=== PATIENT | male | born 1955 | race Caucasian/White ===

== ENCOUNTER 2016-07-28 06:33 | Inpatient (IN) | payer BC ==
--- NOTE | 2016-07-20 21:32 | HP ---
HISTORY AND PHYSICAL: DATE OF ADMISSION/SURGERY: 07/28/16 DATE OF OFFICE VISIT: 07/20/16 SURGEON: Sydnee Naranjo MD PROCEDURE: Right total knee arthroplasty. CHIEF COMPLAINT: Right knee pain. HISTORY OF PRESENT ILLNESS: Mr. Ramirez is a 60-year-old gentleman with complaints of right knee pain secondary to advanced osteoarthritis. He has failed conservative management and elected to proceed with a right total knee arthroplasty which is scheduled for 07/28/[address] Naranjo. PAST MEDICAL HISTORY: Hypertension, high cholesterol, myocardial infarction in 1998. PAST SURGICAL HISTORY: Angioplasty and right knee arthroscopy. CURRENT MEDICATIONS: 1. Naproxen. 2. Amlodipine. 3. Atorvastatin calcium. 4. Carvedilol. 5. Aspirin. 6. Losartan potassium/hydrochlorothiazide. 7. Spironolactone. 8. Ibuprofen. ALLERGIES: No known drug allergies. FAMILY HISTORY: Hypertension and lung cancer. SOCIAL HISTORY: This is a 60-year-old gentleman, he lives with his partner. He does not smoke or use drugs. He uses occasional alcohol. REVIEW OF SYSTEMS: A complete 14-point review of systems was reviewed with the patient, was all negative and noncontributory PHYSICAL EXAMINATION GENERAL: He is a well-developed, well-nourished, he is in no acute distress. VITAL SIGNS: He stands 6 feet tall, weighs 240 pounds. His blood pressure 138/ 86, his heart rate 76. HEENT: Normocephalic, atraumatic. NECK: Supple. No palpable lymph nodes. PULMONARY: Lungs are clear to auscultation bilaterally. No wheezes, rhonchi, or rales. CARDIO: Regular rate and rhythm. Strong S1 and S2. No murmurs, gallops, or rubs. ABDOMEN: Soft, nontender, nondistended. MUSCULOSKELETAL: Right lower extremity, the skin is intact. There is a moderate joint effusion and tenderness over the medial and lateral joint line. No varus or valgus instability. 20 to 90 degrees of flexion. He has 4+/5 dorsiflexion and plantar flexion. Intact sensation to pinprick and light touch. 2+ dorsalis pedis pulses. He walks with a slightly antalgic-type gait favoring his right leg. NEUROLOGICAL: He is alert and oriented x3. Cranial nerves II through XII are intact. ASSESSMENT AND PLAN: Mr. Ramirez is a 60-year-old gentleman with complaints of right knee pain. He has failed conservative management and elected to proceed with a right total knee arthroplasty, which is scheduled for 07/28/[address] Naranjo discussed the risks and benefits of the surgery with him today and all his questions were answered. Coumadin, Percocet, and Colace were sent to his pharmacy for postoperative pain control and DVT prophylaxis. He will see Dr. Naranjo back 10 to 14 days after the surgery. DOUG BOSS [id number]/[facility] #: [id number] KYM
[~2016-07-28 06:33] MED LIST: Buffered Lidocaine 1% SYRIN* 3 ML/SYR SYRINGE INTRADERM ONE; Famotidine IV* 10 MG/ML 2 ML (20 mg) IV ONE; Famotidine IV* 10 MG/ML 2 ML (20 mg) ONE; Gabapentin CAP(*) 300 MG ONE; Gabapentin CAP(*) 300 MG PO ONE; Morphine INJ* 2 MG/ML 1 ML SYRINGE IV PRN; PROCHLORPERAZINE INJ 5 MG/ML 2 ML VIAL IV PRN; Scopolamine 1.5 mg* PATCH ONE; Scopolamine 1.5 mg* PATCH TRANSDERM ONE; ceFAZolin 2 GM PREMIX(*) 2 GM/50 ML BAG IVPB ONE; fentaNYL* 50 MCG/ML 2 ML VIAL (100 MCG VIAL) IV PRN; oxyCODONE/Acetamin 5/325 MG* TAB PO PRN
[2016-07-28] MEDS ORDERED: Midazolam* 1 MG/ML 10 ML VIAL (10 MG) ONE (07:21)
[2016-07-28] MEDS ORDERED: fentaNYL* 50 MCG/ML 2 ML VIAL (100 MCG VIAL) ONE (07:21)
[2016-07-28] MEDS ORDERED: KETAMINE HCL* 50 MG/ML 10 ML VIAL ONE (07:21)
[2016-07-28] MEDS ORDERED: Bupivacaine 0.5% SDV PF* 30 ML VIAL ONE (07:28)
[2016-07-28] MEDS ORDERED: Hetastarch in NS* 500 ML IV ONE (07:29)
[2016-07-28] MEDS ORDERED: Propofol* 500 MG/50 ML BTL ONE (08:38)
[2016-07-28] MEDS ORDERED: Lidocaine 2% PF* 5 ML VIAL ONE (08:38)
[2016-07-28] MEDS ORDERED: Ondansetron INJ* 2 MG/ML VIAL ONE (08:38)
[2016-07-28] MEDS ORDERED: Dexamethasone IV* 4 MG/ML 1 ML (4 MG) ONE (08:38)
[2016-07-28] MEDS ORDERED: Phenylephrine INJ* 10 MG/ML 1 ML VIAL (10 MG) ONE (08:38)
[2016-07-28] MEDS ORDERED: Nalbuphine* 20 MG/ML 1 ML VIAL IV PRN (08:54)
[2016-07-28] MEDS ORDERED: Ondansetron INJ* 2 MG/ML VIAL IV PRN (08:54)
[2016-07-28] MEDS ORDERED: PROCHLORPERAZINE INJ 5 MG/ML 2 ML VIAL IV PRN (08:54)
[2016-07-28] MEDS ORDERED: Lactated Ringers 500 ml BAG* 500 ML IV PRN (08:54)
[2016-07-28] MEDS ORDERED: EPHEDrine (Pressors)* 50 MG/ML VIAL IV PUSH PRN (08:54)
[2016-07-28] MEDS ORDERED: Hetastarch in NS* 500 ML IV PRN (08:54)
[2016-07-28] MEDS ORDERED: Ropivacaine 0.2% EPIDURAL* 200 MG/100 ML BAG EPIDURAL SCH (09:00)
[2016-07-28] MEDS ORDERED: Ropivacaine 0.2% EPIDURAL* 200 MG/100 ML BAG EPIDURAL ONE (09:06)
[2016-07-28] MEDS ORDERED: Metoprolol Tartrate IV* 1 MG/ML 5 ML VIAL ONE (10:03)
[2016-07-28] MEDS ORDERED: Bupivacaine 0.25% SDV* 30 ML ONE (10:39)
[2016-07-28] MEDS ORDERED: Propofol* 10 MG/ML 20 ML BTL IV PUSH ONE (10:39)
[2016-07-28] MEDS ORDERED: Morphine INJ* 2 MG/ML 1 ML SYRINGE IV PRN (11:04)
[2016-07-28] MEDS ORDERED: Magnesium Hydroxide LIQ* 30 ML UDC PO PRN (11:04)
[2016-07-28] MEDS ORDERED: diPHENhydraMINE IV* 50 MG/ML 1 ml VIAL (BENADRYL) IV PRN (11:04)
[2016-07-28] MEDS ORDERED: Polyethylene Glycol 3350* 17 GM PACKET PO PRN (11:04)
[2016-07-28] MEDS ORDERED: Bisacodyl SUPP* 10 MG SUPP PR PRN (11:04)
[2016-07-28] MEDS ORDERED: oxyCODONE/Acetamin 5/325 MG* TAB PO PRN ×2 (11:04→13:36)
[2016-07-28] MEDS ORDERED: LACTULOSE* 30 ML UDC PO PRN (11:04)
--- NOTE | 2016-07-28 11:51 | RAD ---
INDICATION: Right total knee arthroplasty COMPARISON: May 05, 2016 TECHNIQUE: Portable AP and crosstable lateral imaging was performed. FINDINGS: There is right knee arthroplasty. Both femoral and tibial components appear well seated. There is a cooling jacket surgical drain. IMPRESSION: POSTOPERATIVE RIGHT KNEE ARTHROPLASTY.
[2016-07-28] MEDS ORDERED: Morphine PF AMP (0.5MG/ML)* 5 MG/10 ML AMP ONE (11:56)
[2016-07-28] MEDS ORDERED: Naloxone* 0.4 MG/ML 1 ML VIAL IV PRN (13:36)
[2016-07-28] MEDS: ceFAZolin 1 GM in Dextrose (*) 1 GM/50 ML BAG IVPB SCH (16:37)
[2016-07-28] MEDS ORDERED: Warfarin TAB(*) 6 MG PO ONE (17:00)
--- NOTE | 2016-07-28 22:31 | CONS ---
CONSULTATION REPORT: DATE OF ADMISSION: 07/28/16 DATE OF CONSULT: 07/28/16 PRIMARY CARE PROVIDER: DOUG Lucero, [facility]. REQUESTING PHYSICIAN FOR CONSULT: Dr. Naranjo. ATTENDING PHYSICIAN WHILE IN THE HOSPITAL: Dr. Saenz (report being dictated by Hubert Cole NP) REASON FOR MEDICAL CONSULTATION: Evaluation and management of medical problems. HISTORY OF PRESENT ILLNESS: I refer you to Dr. Naranjo's H and P for further details. In short, Mr. Ramirez is a 60-year-old male patient with history of hypertension, hyperlipidemia, coronary artery disease, CKD, and history of DE. The patient presented to Dr. Naranjo's service in the outpatient setting with complaints of right knee pain that had been affecting his activity of daily living. He had failed conservative management and elected for a total knee replacement, which he underwent today. The patient states that he was evaluated in the postoperative setting. He says he is not having any chest pain or any shortness of breath. He says he does not feel lightheaded or dizzy. He says he feel a little tired. He is hungry. He denies having any nausea or vomiting. He says his legs feel like they are red, but he states that he is able to move them and he does have sensation, but they feel heavy bilaterally. He does have an epidural in place and also did have Duramorph and he denies having any again lightheadedness or dizziness. He carries a history of hypertension. He is on several different blood pressure medications; hyperlipidemia, CAD, and CKD and the hospitalist service was asked to evaluate in consult. PAST MEDICAL HISTORY: Significant for: 1. Hypertension. 2. Hyperlipidemia. 3. CAD. 4. DE. 5. CKD. PAST SURGICAL HISTORY: 1. The patient has had a right total knee arthroplasty. 2. Cardiac catheterization. 3. Knee arthroscopy, now again right total knee done today. HOME MEDICATIONS: According to the preop list include: 1. Losartan/hydrochlorothiazide 1 tablet daily. 2. Lipitor 1 tablet daily. 3. Aspirin 1 tablet daily. 4. Norvasc 1 tablet daily. 5. Spironolactone 50 mg p.o. daily. 6. Carvedilol 1 tablet p.o. b.i.d. He did clarify that he does not take this once a day. 7. Naproxen 500 mg p.o. b.i.d. ALLERGIES TO MEDICATIONS: Include no known drug allergies. FAMILY HISTORY: His mother had a CVA. Father had lung cancer. SOCIAL HISTORY: He does not smoke. He does not drink. Surrogate decision maker is his friend, Emmy. He has children. He is . REVIEW OF SYSTEMS: There is no documented fever. He denied having any significant weight change. There was no double vision. There is no ear discharge. There is no rhinorrhea. No sore throat. No thyroid enlargement. Denied having any chest pain. There is no orthopnea. No nocturnal dyspnea. There is no abdominal pain. No nausea. No vomiting. No dysuria. No Frequency. No loss of consciousness. No pruritus and no skin ulcerations. Review of 14 systems completed, all others negative. PHYSICAL EXAM: Vital Signs: Blood pressure 126/85 with a pulse of 60, respirations 18, O2 saturation 98%, temperature 96.8. General: At this time, Mr. Ramirez is a 60-year-old male patient. He is well-nourished and well- developed. He is sitting in the hospital bed. He does not appear to be in any acute distress. HEENT: Head atraumatic and normocephalic. Eyes: EOMs intact. Sclerae anicteric. Neck: Supple. Throat: Oral mucosa appears to be moist. No oropharyngeal erythema. Heart: Sounds S1 and S2. Regular rate and rhythm. No murmurs, rubs, or gallops. Lungs: Clear to auscultation. No wheezes, rales, or rhonchi. Abdomen: Soft, flat, and nontender. Bowel sounds present. Extremities: Pulses 2+ throughout. Distal CSM checks were intact to the right lower extremity. He is moving the upper extremities with 5/5 strength. He has limited range of motion of the right lower extremity because this is the operative leg. Neurologically, he is drowsy, but he awakens to his name. He is alert. He is oriented x3. Speech is clear. Tongue midline. He had no gross focal deficits. His skin is intact. DIAGNOSTIC STUDIES/LAB STUDIES: Preop labs revealed WBC of 8.4, RBC of 5.26, hemoglobin 16.4, hematocrit 48, platelet count 140, INR 0.98, PTT of 33.1. Sodium 134, potassium 4.6, chloride 104, bicarb 22, BUN 46, creatinine 1.98. I do not have a baseline. A1c 5.9, AST 30, ALT 58. Urine obtained preop negative. He had an EKG preoperatively, which shows a normal sinus rhythm. He had inverted T-wave in V6, but no signs of ST elevation. No previous for comparison. There is a preop chest x-ray, which revealed no active cardiopulmonary disease. Old medical records were reviewed. ASSESSMENT AND PLAN: Mr. Ramirez is a 60-year-old male patient coming in to the surgical service today for any elective right total knee that we were asked to evaluate in consult. The patient was admitted under our orthopedic services. We were asked to evaluate and consult. Recommendations to this point are: 1. Right total knee replacement. At this point, I will defer the management of this to Surgery and their team. 2. Hypertension. I am going to hold his medications. His blood pressure is in the 120s. With the epidural, he is probably going to run on the low side. The plan would be to hold everything, but the beta-ludmila. Continue that with hold parameters and restart slowly. 3. Hyperlipidemia, continue statin therapy. 4. Coronary artery disease. He is on a statin and beta-ludmila. Continue those. I would restart his aspirin when it is safe per Orthopedics and Anesthesia as he did have an epidural. 5. Chronic kidney disease. I am going to try to get labs from his primary to confirm this is his baseline and I will continue to follow. 6. Code status, full code. 7. Fluids, electrolytes, and nutrition. He can have a heart healthy diet. TIME SPENT: Time spent on the consult was 60 minutes, greater than half the time was spent [id number] with the patient obtaining history and physical, other half the time spent going over the plan of care with the patient and implementing plan of care. I did discuss the plan of care with my attending, Dr. Saenz; she is in agreement. HUBERT COLE NP CC: DOUG Lucero; Dr. Naranjo* [id number]/[facility] #: [id number] [facility]
[2016-07-28] MEDS: Gabapentin CAP(*) 300 MG PO SCH (22:36)
[2016-07-28] MEDS: Docusate CAP* 100 MG PO SCH (22:36)
[2016-07-28] MEDS: Carvedilol TAB* 25 MG PO SCH (22:36)
[2016-07-29] MEDS: ceFAZolin 1 GM in Dextrose (*) 1 GM/50 ML BAG IVPB SCH ×2 (00:21→08:29)
[2016-07-29] MEDS ORDERED: Acetaminophen TAB* 325 MG PO PRN (04:45)
[2016-07-29] MEDS ORDERED: Ondansetron TAB* 4 MG PO PRN (06:00)
[2016-07-29 06:31] LABS: Hematocrit 39 % (42-52); Mean Corpuscular HGB Conc 33 g/dl (31-36); Mean Corpuscular Hemoglobin 30 pg (27-31); Mean Corpuscular Volume 91 fL (80-94); Mean Platelet Volume 10 um3 (7.4-10.4); Red Blood Count 4.28 10^6/ul (4.0-5.4); Red Cell Distribution Width 15 % (10.5-15); White Blood Count 14.4 10^3/ul (3.5-10.8)
[2016-07-29 06:56] LABS: BUN/Creatinine Ratio 16.7 (8-20); Calcium 8.6 mg/dL (8.6-10.3); EGFR African American 61.4 (>60); EGFR Non-African American 47.7 (>60); Potassium 4.2 mmol/L (3.5-5.0)
--- NOTE | 2016-07-29 07:39 | PN ---
Progress Note - Progress Note SOAP: Subjective: Pt. reports pain is controlled. Objective: RLE - drain removed, tip intact, 400 cc ss drainage. distally nvi with +df/pf, full sens lt, 2+ dp pulse. Vital Signs: Temp Pulse Resp BP Pulse Ox 97.3 F 79 16 122/82 97 07/29/16 03:42 07/29/16 03:42 07/29/16 05:09 07/29/16 03:42 07/29/16 03:42 Laboratory Results - last 24 hr 07/29/16 07/29/16 07/29/16 06:07 06:07 06:07 WBC 14.4 H RBC 4.28 Hgb 13.0 L Hct 39 L MCV 91 MCH 30 MCHC 33 RDW 15 Plt Count 105 L MPV 10 Neut % (Auto) 88.2 H Lymph % (Auto) 5.3 L Randolph % (Auto) 6.3 Eos % (Auto) 0 Baso % (Auto) 0.2 Absolute Neuts (auto) 12.7 H Absolute Lymphs (auto) 0.8 L Absolute Monos (auto) 0.9 H Absolute Eos (auto) 0 Absolute Basos (auto) 0 Absolute Nucleated RBC 0 Nucleated RBC % 0 INR (Anticoag Therapy) 1.04 Sodium 136 Potassium 4.2 Chloride 104 Carbon Dioxide 24 Anion Gap 8 BUN 25 H Creatinine 1.50 H Est GFR ( Amer) 61.4 Est GFR (Non-Af Amer) 47.7 BUN/Creatinine Ratio 16.7 Glucose 139 H Calcium 8.6 Assessment: 60 yo M pod 1 s/p RTKA Plan: hct stable coumadin 10 mg tonight with lovenox bridge pt/ot wbat plan d/c to home 07/30
[2016-07-29] MEDS: Docusate CAP* 100 MG PO SCH ×2 (08:31→20:09)
[2016-07-29] MEDS: Carvedilol TAB* 25 MG PO SCH ×2 (08:31→20:09)
[2016-07-29] MEDS: Gabapentin CAP(*) 300 MG PO SCH ×2 (08:31→20:09)
[2016-07-29] MEDS: Atorvastatin* 10 MG TAB PO SCH (08:31)
--- NOTE | 2016-07-29 08:53 | PN ---
Subjective Date of Service: 07/29/16 Interval History: .Pt seen and evaluated at 1700. Pt reports he "is sore but feels good". Has not been able to void since mandujano removal. reports he feels like he has to go and wants to give it some time and drink more fluid. Pt denies Fever or chills. No CP or SOB. Objective Active Medications: Acetaminophen (Tylenol Tab*) 650 mg PO Q4H PRN PRN Reason: PAIN OR TEMPERATURE Atorvastatin Calcium (Lipitor*) 10 mg PO QAM [facility] Last Admin: 07/29/16 08:31 Dose: 10 mg Bisacodyl (Dulcolax Supp*) 10 mg ID DAILY PRN PRN Reason: constipation Carvedilol (Coreg Tab*) 25 mg PO BID [facility] Last Admin: 07/29/16 08:31 Dose: 25 mg Diphenhydramine HCl (Benadryl Iv*) 12.5 mg IV Q6H PRN PRN Reason: PRURITIS Docusate Sodium (Colace Cap*) 100 mg PO BID [facility] Last Admin: 07/29/16 08:31 Dose: 100 mg Enoxaparin Sodium (Lovenox(*)) 30 mg SUBCUT Q24H [facility] Gabapentin (Neurontin Cap(*)) 300 mg PO BID [facility] Last Admin: 07/29/16 08:31 Dose: 300 mg Hetastarch/Sodium Chloride (Hespan*) 500 mls @ 667 mls/hr IV ONCE PRN PRN Reason: HYPOTENSION Lactated Ringer's (Lactated Ringers 1000 Ml Bag*) 1,000 mls @ 100 mls/hr IV PER RATE [facility] Last Admin: 07/29/16 02:49 Dose: 100 mls/hr Lactulose (Lactulose*) 30 ml PO Q6H PRN PRN Reason: constipation Magnesium Hydroxide (Milk Of Magnesia Liq*) 30 ml PO Q6H PRN PRN Reason: constipation Morphine Sulfate (Morphine Inj (Syringe)*) 2 mg IV Q2H PRN PRN Reason: PAIN Ondansetron HCl (Zofran Tab*) 4 mg PO Q6H PRN PRN Reason: NAUSEA Oxycodone HCl (Roxycodone Tab*) 10 mg PO Q4H PRN PRN Reason: SEVERE PAIN Oxycodone/Acetaminophen (Percocet 5/325 Tab*) 1 tab PO Q3H PRN PRN Reason: PAIN - MODERATE Oxycodone/Acetaminophen (Percocet 5/325 Tab*) 2 tab PO Q3H PRN PRN Reason: PAIN - MODERATE Oxycodone/Acetaminophen (Percocet 5/325 Tab*) 2 tab PO Q4H PRN PRN Reason: Moderate Pain Stop: 08/01/16 13:35 Last Admin: 07/29/16 05:09 Dose: 2 tab Pharmacy Profile Note (Scopolomine Patch Remove*) 1 note PATCH OFF ONCE ONE Stop: 07/31/16 06:01 Pharmacy Profile Note (Coumadin Daily Reminder*) 1 note FOLLOW UP 1700 JESUS Polyethylene Glycol/Electrolytes (Miralax*) 17 gm PO DAILY PRN PRN Reason: Constipation Warfarin Sodium (Coumadin Tab(*)) 10 mg PO ONCE@1700 ONE PRN Reason: Protocol Stop: 07/29/16 17:01 Vital Signs 07/28/16 07/29/16 07/29/16 22:36 00:21 00:36 Temperature Pulse Rate 88 Respiratory 16 18 18 Rate Blood Pressure 134/91 (mmHg) O2 Sat by Pulse 98 Oximetry 07/29/16 07/29/16 07/29/16 03:42 05:09 07:09 Temperature 97.3 F Pulse Rate 79 Respiratory 16 16 18 Rate Blood Pressure 122/82 (mmHg) O2 Sat by Pulse 97 Oximetry 07/29/16 07/29/16 07:23 08:31 Temperature 97.4 F Pulse Rate 67 Respiratory 17 18 Rate Blood Pressure 135/83 (mmHg) O2 Sat by Pulse 98 Oximetry Oxygen Devices in Use Now: None Appearance: 60 yo male sitting up in a chair in NAD. A+O x3 Eyes: No Scleral Icterus, PERRLA Ears/Nose/Mouth/Throat: NL Teeth, Lips, Gums, Mucous Membranes Moist Neck: NL Appearance and Movements; NL JVP Respiratory: Symmetrical Chest Expansion and Respiratory Effort, Clear to Auscultation Cardiovascular: NL Sounds; No Murmurs; No JVD, RRR Abdominal: NL Sounds; No Tenderness; No Distention Extremities: No Clubbing, Cyanosis, - - right knee to cryo-unit, trace LE edema noted Skin: No Rash or Ulcers, No Nodules or Sclerosis Neurological: Alert and Oriented x 3, NL Sensation, NL Muscle Strength and Tone Lines/Tubes/Other Access: Clean, Dry and Intact Peripheral IV Nutrition: Taking PO's Result Diagrams: 07/29/16 06:07 07/29/16 06:07 Assess/Plan/Problems-Billing Assessment: Mr. Ramirez is a 60 yo male with a PMH of CKD, CAD, HTN who underwent an elective right total knee replacement 2/ with Dr. Naranjo - Patient Problems (1) Status post total right knee replacement Comment: POD #1 Dispo per Ortho Team - HH stable. - Bowel Regimen - PT/OT (2) Urinary retention Comment: - Pt reports difficulty urinating after mandujano pulled today. Bladder scan 350 mls urine. Plan to DC scopolamine patch, encourage fluids, give 1 L NS. - Bladder scan q4 hours - will place mandujano if bladder scan >500 ml urine. (3) Hyperglycemia Comment: - HgA1C 07/24/2016 - 5.9 (4) HTN (hypertension) Comment: - stable. continue home meds coreg, restart norvasc. hold losartan/HCTZ and spironolactone for now. (5) CAD (coronary artery disease) Comment: - continue BB, lipitor - restart ASA when cleared by Ortho (6) CKD (chronic kidney disease) Comment: appears to be at baseline (7) DVT prophylaxis Comment: lovenox - coumadin (8) Full code status Status and Disposition: inpatient s/p elective right total knee. Home when stable.
[2016-07-29] MEDS ORDERED: Losartan/HCTZ 100/25 (NF) TAB PO SCH (09:00)
[2016-07-29] MEDS ORDERED: Spironolactone TAB* 25 MG PO SCH (09:00)
[2016-07-29] MEDS ORDERED: Carvedilol TAB* 25 MG PO SCH (09:00)
[2016-07-29] MEDS ORDERED: amLODIPine TAB* 5 MG PO SCH (09:00)
[2016-07-29] MEDS: oxyCODONE/Acetamin 5/325 MG* TAB PO PRN ×3 (09:14→20:08)
[2016-07-29] MEDS: Enoxaparin(*) 30 MG/0.3 ML SYR SUBCUT SCH (10:15)
[2016-07-29] MEDS: oxyCODONE TAB* 5 MG TAB PO PRN ×2 (13:02→22:47)
--- NOTE | 2016-07-29 15:17 | PN ---
Progress Note - Progress Note Note: Anesthesia duramorph followup. Neuro ok, -ROGERS, -N/V, decent pain control. s/p TKR continue oral meds
--- NOTE | 2016-07-29 15:28 | OP ---
DATE OF OPERATION: 07/28/16 - ROOM #342 DATE OF : 55 SURGEON: Sydnee Naranjo MD [employer] DEVELOPER: DOUG Delgado ANESTHESIOLOGIST: Dr. Posadas. ANESTHESIA: Spinal with adductor nerve block. PRE-OP DIAGNOSIS: Severe endstage degenerative osteoarthritis of the right knee joint. POST-OP DIAGNOSIS: Severe endstage degenerative osteoarthritis of the right knee joint. OPERATIVE PROCEDURE: Right total knee arthroplasty. TOURNIQUET TIME: 74 minutes. COMPLICATIONS: None. ESTIMATED BLOOD LOSS: 250 cc. HARDWARE USED: This is a cemented [employer] total knee hardware with two packages of Simplex bone cement. For the femur, a size 7 right femoral component Oxinium, posterior stabilized. For the tibia, a size 6 tibial base plate right, a 35 mm 3-peg all poly patella, and a 9 mm posterior stabilized articular insert. SPECIMENS: Bone and cartilage from the right knee joint sent to pathology. BRIEF HISTORY/INDICATIONS: Mr. Ramirez is a 60-year-old male with years of increasingly severe right knee pain. He failed conservative treatment with antiinflammatories, pain medications, intraarticular injections, and physical therapy. Radiographs confirmed severe arthritis of the right knee joint. He elected to undergo right total knee arthroplasty due to continued pain and decreased quality of life. Informed consent was obtained from the patient. He understood the risks of the procedure included, but were not limited to bleeding , infection, damage to nearby structures, continued pain, need for further surgery, intraoperative fracture, nerve palsy, hardware failure or loosening, knee stiffness or loss of motion, stroke, heart attack, blood clot, and . He wished to proceed. INTRAOPERATIVE FINDINGS: Intraoperatively, the patient was noted to have severe arthritis in a tricompartmental fashion. He had loss of cartilage along the medial femoral condyle and the entire patella. DESCRIPTION OF PROCEDURE: Mr. Ramirez was identified in the preanesthesia unit. His right lower extremity was marked as the correct operative site. Informed consent was signed and placed in the chart. The patient was taken to the operating room and spinal anesthesia was administered as well as an adductor nerve block. A Bryson catheter was placed. Thigh high tourniquet was placed on the right lower extremity. The right lower extremity was prepped and draped in the usual sterile fashion. Preop time-out was made to correctly identify the patient, side, and site. Appropriate perioperative antibiotics were given within 1 hour of incision. Tourniquet was inflated and total tourniquet time for this procedure was 74 minutes. A 10-cm midline incision was made with a 10 blade and carried down to the extensor mechanism. A new 10-blade was then used to make a standard medial parapatellar arthrotomy and the patella was subluxed laterally. Electrocautery was used to subperiosteally elevate soft tissue off the superomedial tibia in a sagittal plane. Rongeur was used to remove any tibial osteophytes medially. The knee was flexed up. The anterior horn of the lateral meniscus and ACL were sharply released. A drill was used to enter the distal femur. Intramedullary distal femoral cutting guide was pinned into proper position. A 9 mm of distal femur was carefully removed with an oscillating saw. The external rotation guide was pinned on the distal femur and the femur was sized to a size 7. The size 7 multi-cutting jig was pinned on the distal femur and the appropriate 4 chamfer cuts were made using an oscillating saw. The bony fragments were carefully removed. PCL was completely released. The tibia was subluxed anteriorly and the extramedullary tibial cutting guide was pinned on the proximal tibia. Oscillating saw was used to make a proximal tibial cut perpendicular to the mechanical axis of the tibia. The tibial bone was carefully removed. The knee was brought out into full extension and spacer block fit well. There was good medial and lateral ligamentous balancing. The knee was flexed up. [employer] corporate compliance director was placed both medially and laterally. Any remaining meniscus was carefully removed using electrocautery. Any posterior osteophytes were removed with a curved osteotome and rongeur. Tibial tray and drop riley were placed once again, confirmed a satisfactory tibial cut. A trial size 7 right femur was impacted on to the distal femur and noted to have good fit. The box for the posterior stabilized implant was prepared using a reamer and box cut osteotome. A size 6 tibial tray trial and 9-mm insert trial were chosen and these were placed while the knee was taken through range of motion. The knee had full extension to 125 degrees of flexion with good patellofemoral tracking. Flexion and extension gaps were well balanced. Patella was everted. 9-mm of patellar bone and cartilage were carefully removed with an oscillating saw. The patella was sized to a size 35. Three peg holes were drilled through the size 35 guide. A trial 35 patella was placed and the knee was taken through range of motion. There was good patellofemoral tracking. All trials were carefully removed. The tibia was subluxed anteriorly. The tibia was sized to a size 6. The proximal tibia was prepared using a keel punch. All bony cut surfaces were copiously irrigated with sterile saline and dried. The final implants were cemented into place starting with the tibia followed by the femur and last the patella. The 9-mm insert trial was placed while the cement was allowed to fully cure. The tourniquet was turned down at 74 minutes. Electrocautery was used to obtain meticulous hemostasis. Any excess cement was carefully removed. Final insert chosen was a 9-mm posterior stabilized articular insert. This was locked into position on the tibial tray without difficulty. Stability of the liner was checked and rechecked and noted to be stable. The final range of motion is full extension to 130 degrees of flexion with good patellofemoral tracking. The knee was copiously irrigated with sterile saline. The extensor mechanism was closed over a medium Hemovac drain using interrupted #1 Vicryl. The rest of the incision was closed in a layered fashion using 0 and 2-0 Vicryls. Skin was closed using running 3-0 nylon suture. Sterile Xeroform, 4x4s, and Webril were used to cover the incision. Niall wrap and cold pack were placed over this. The patient's anesthesia was reversed without difficulty. He was taken to the PACU in stable condition. Intended weightbearing will be weightbearing as tolerated. Intended DVT prophylaxis will be Coumadin with a Lovenox bridge. [id number]/[facility] #: [id number] [facility]
[2016-07-29] MEDS ORDERED: Warfarin TAB(*) 10 MG PO ONE (17:00)
[2016-07-29] MEDS ORDERED: NS 0.9% 1000 ML* 1,000 ML IV SCH (17:30)
[2016-07-30] MEDS: oxyCODONE/Acetamin 5/325 MG* TAB PO PRN ×4 (00:44→15:09)
[2016-07-30] MEDS ORDERED: amLODIPine TAB* 5 MG PO ONE (04:00)
[2016-07-30] MEDS ORDERED: amLODIPine TAB* 5 MG ONE (04:04)
[2016-07-30 06:41] LABS: Hematocrit 37 % (42-52); Hemoglobin 12.6 g/dl (14.0-18.0); Mean Corpuscular HGB Conc 34 g/dl (31-36); Mean Corpuscular Hemoglobin 31 pg (27-31); Mean Corpuscular Volume 90 fL (80-94); Mean Platelet Volume 10 um3 (7.4-10.4); Red Blood Count 4.07 10^6/ul (4.0-5.4); Red Cell Distribution Width 16 % (10.5-15); White Blood Count 11.7 10^3/ul (3.5-10.8)
[2016-07-30 06:43] LABS: Add Diff/Slide Review? Slide Review Added; Comments Flag Yes
[2016-07-30 07:08] LABS: BUN/Creatinine Ratio 19.7 (8-20); Calcium 8.4 mg/dL (8.6-10.3); EGFR African American 50.4 (>60); EGFR Non-African American 39.2 (>60); Potassium 3.9 mmol/L (3.5-5.0)
[2016-07-30] MEDS: Docusate CAP* 100 MG PO SCH (07:19)
[2016-07-30] MEDS: Gabapentin CAP(*) 300 MG PO SCH (07:19)
[2016-07-30] MEDS: Carvedilol TAB* 25 MG PO SCH (07:19)
[2016-07-30] MEDS: Atorvastatin* 10 MG TAB PO SCH (07:19)
[2016-07-30] MEDS: Enoxaparin(*) 30 MG/0.3 ML SYR SUBCUT SCH (07:21)
[2016-07-30] MEDS: oxyCODONE TAB* 5 MG TAB PO PRN ×2 (07:24→12:59)
[2016-07-30] MEDS ORDERED: amLODIPine TAB* 5 MG PO SCH (09:00)
[2016-07-30] MEDS ORDERED: Hydrochlorothiazide TAB* 25 MG PO SCH (09:00)
[2016-07-30] MEDS ORDERED: Spironolactone TAB* 25 MG PO SCH (09:00)
[2016-07-30] MEDS ORDERED: Losartan TAB* 25 MG PO SCH (09:00)
--- NOTE | 2016-07-30 15:37 | PN ---
Progress Note - Progress Note SOAP: Subjective: []Patient seen at bedside. BP's have been running hig, but his regular antihypertensives had been held until today. He feels good and hopes to go home today. Objective: [] Vital Signs Temp 98.2 F 07/30/16 15:07 Pulse 82 07/30/16 15:07 Resp 16 07/30/16 15:09 BP 160/94 07/30/16 15:07 Pulse Ox 96 07/30/16 15:07 Intake & Output 07/29/16 07/30/16 07/30/16 18:59 06:59 18:59 Intake Total 1744 2290 865 Output Total 0 2125 1150 Balance 1744 165 -285 Intake: IV Fluids 1064 800 Cefazoloin 55 LR 1009 800 Oral 680 1490 865 Output: Urine 0 2125 1150 Other: Estimated Void Medium Medium # Voids 1 1 Laboratory Results - last 24 hr 07/30/16 07/30/16 07/30/16 06:27 06:27 06:28 WBC 11.7 H RBC 4.07 Hgb 12.6 L Hct 37 L MCV 90 MCH 31 MCHC 34 RDW 16 H Plt Count 85 L MPV 10 Neut % (Auto) 72.2 Lymph % (Auto) 16.3 L [place] % (Auto) 8.8 Eos % (Auto) 2.1 Baso % (Auto) 0.6 Absolute Neuts (auto) 8.5 H Absolute Lymphs (auto) 1.9 Absolute Monos (auto) 1.0 H Absolute Eos (auto) 0.2 Absolute Basos (auto) 0.1 Absolute Nucleated RBC 0.01 Nucleated RBC % 0.1 INR (Anticoag Therapy) 1.12 H Sodium 133 Potassium 3.9 Chloride 101 Carbon Dioxide 27 Anion Gap 5 BUN 35 H Creatinine 1.78 H Est GFR ( Amer) 50.4 Est GFR (Non-Af Amer) 39.2 BUN/Creatinine Ratio 19.7 Glucose 111 H Calcium 8.4 L Hep Bs Antigen Hepatitis C Antibody 07/30/16 06:28 WBC RBC Hgb Hct MCV MCH MCHC RDW Plt Count MPV Neut % (Auto) Lymph % (Auto) [place] % (Auto) Eos % (Auto) Baso % (Auto) Absolute Neuts (auto) Absolute Lymphs (auto) Absolute Monos (auto) Absolute Eos (auto) Absolute Basos (auto) Absolute Nucleated RBC Nucleated RBC % INR (Anticoag Therapy) Sodium Potassium Chloride Carbon Dioxide Anion Gap BUN Creatinine Est GFR ( Amer) Est GFR (Non-Af Amer) BUN/Creatinine Ratio Glucose Calcium Hep Bs Antigen Nonreactive Hepatitis C Antibody Nonreactive Right knee dressings changed by Dr. Naranjo, benign calf non tender and soft +DF/PF right ankle neuro intact Assessment: []s/p Right total knee arthoplasty POD#2 Plan: []BP's are trending down, will start his Coreg tonight, medical service feels he is stable medically for discharge home. ASA 325 mg BID Follow up in 10-[address] Naranjo
[2016-07-30 15:52] VITALS: BP 175/109
--- NOTE | 2016-07-30 16:23 | PN ---
Subjective Date of Service: 07/30/16 Interval History: pt reports he is feeling well enough to go home today. Reports his knee pain is tolerable. No other complaints Objective Active Medications: Acetaminophen (Tylenol Tab*) 650 mg PO Q4H PRN PRN Reason: PAIN OR TEMPERATURE Amlodipine Besylate (Norvasc Tab*) 5 mg PO DAILY [facility] Last Admin: 07/30/16 07:19 Dose: 5 mg Atorvastatin Calcium (Lipitor*) 10 mg PO QAM [facility] Last Admin: 07/30/16 07:19 Dose: 10 mg Bisacodyl (Dulcolax Supp*) 10 mg [place] DAILY PRN PRN Reason: constipation Carvedilol (Coreg Tab*) 25 mg PO BID [facility] Last Admin: 07/30/16 07:19 Dose: 25 mg Diphenhydramine HCl (Benadryl Iv*) 12.5 mg IV Q6H PRN PRN Reason: PRURITIS Docusate Sodium (Colace Cap*) 100 mg PO BID [facility] Last Admin: 07/30/16 07:19 Dose: 100 mg Enoxaparin Sodium (Lovenox(*)) 30 mg SUBCUT Q24H [facility] Last Admin: 07/30/16 07:21 Dose: 30 mg Gabapentin (Neurontin Cap(*)) 300 mg PO BID [facility] Last Admin: 07/30/16 07:19 Dose: 300 mg Hydrochlorothiazide (Hydrodiuril Tab*) 25 mg PO DAILY [facility] Last Admin: 07/30/16 09:16 Dose: 25 mg Hetastarch/Sodium Chloride (Hespan*) 500 mls @ 667 mls/hr IV ONCE PRN PRN Reason: HYPOTENSION Lactated Ringer's (Lactated Ringers 1000 Ml Bag*) 1,000 mls @ 100 mls/hr IV PER RATE [facility] Last Admin: 07/29/16 02:49 Dose: 100 mls/hr Lactulose (Lactulose*) 30 ml PO Q6H PRN PRN Reason: constipation Losartan Potassium (Cozaar Tab*) 100 mg PO DAILY [facility] Last Admin: 07/30/16 09:16 Dose: 100 mg Magnesium Hydroxide (Milk Of Magnesia Liq*) 30 ml PO Q6H PRN PRN Reason: constipation Morphine Sulfate (Morphine Inj (Syringe)*) 2 mg IV Q2H PRN PRN Reason: PAIN Ondansetron HCl (Zofran Tab*) 4 mg PO Q6H PRN PRN Reason: NAUSEA Oxycodone HCl (Roxycodone Tab*) 10 mg PO Q4H PRN PRN Reason: SEVERE PAIN Last Admin: 07/30/16 12:59 Dose: 10 mg Oxycodone/Acetaminophen (Percocet 5/325 Tab*) 1 tab PO Q3H PRN PRN Reason: PAIN - MODERATE Oxycodone/Acetaminophen (Percocet 5/325 Tab*) 2 tab PO Q3H PRN PRN Reason: PAIN - MODERATE Last Admin: 07/30/16 15:09 Dose: 2 tab Oxycodone/Acetaminophen (Percocet 5/325 Tab*) 2 tab PO Q4H PRN PRN Reason: Moderate Pain Stop: 08/01/16 13:35 Last Admin: 07/29/16 05:09 Dose: 2 tab Pharmacy Profile Note (Coumadin Daily Reminder*) 1 note FOLLOW UP 1700 [facility] Last Admin: 07/29/16 17:16 Dose: 1 note Polyethylene Glycol/Electrolytes (Miralax*) 17 gm PO DAILY PRN PRN Reason: Constipation Spironolactone (Aldactone Tab*) 50 mg PO DAILY [facility] Last Admin: 07/30/16 09:16 Dose: 50 mg Vital Signs 07/30/16 07/30/16 07/30/16 11:20 12:15 12:59 Temperature 98.0 F Pulse Rate 73 Respiratory 17 16 16 Rate Blood Pressure 173/91 (mmHg) O2 Sat by Pulse 96 Oximetry 07/30/16 07/30/16 07/30/16 14:59 15:07 15:09 Temperature 98.2 F Pulse Rate 82 Respiratory 16 16 16 Rate Blood Pressure 160/94 (mmHg) O2 Sat by Pulse 96 Oximetry 07/30/16 15:44 Temperature 97.9 F Pulse Rate 73 Respiratory 17 Rate Blood Pressure 175/109 (mmHg) O2 Sat by Pulse 99 Oximetry Oxygen Devices in Use Now: None Appearance: 60 yo male A+O x3 in NAD Eyes: No Scleral Icterus, PERRLA Ears/Nose/Mouth/Throat: NL Teeth, Lips, Gums, Mucous Membranes Moist Neck: NL Appearance and Movements; NL JVP Respiratory: Symmetrical Chest Expansion and Respiratory Effort, Clear to Auscultation Cardiovascular: NL Sounds; No Murmurs; No JVD, RRR, - - trace RLE edema Abdominal: NL Sounds; No Tenderness; No Distention Extremities: No Clubbing, Cyanosis Skin: - - right knee to cryo unit Neurological: Alert and Oriented x 3, NL Sensation, NL Muscle Strength and Tone Lines/Tubes/Other Access: Clean, Dry and Intact Peripheral IV Nutrition: Taking PO's Result Diagrams: 07/30/16 06:27 07/30/16 06:27 Assess/Plan/Problems-Billing Assessment: Mr. Ramirez is a 60 yo male with a PMH of CKD, CAD, HTN who underwent an elective right total knee replacement 2/ with Dr. Naranjo - Patient Problems (1) Status post total right knee replacement Comment: POD #2 Dispo per Ortho Team - HH stable. - Bowel Regimen - PT/OT (2) Urinary retention Comment: - resolved (3) Hyperglycemia Comment: - HgA1C 07/24/2016 - 5.9 (4) HTN (hypertension) Comment: - high SBP this am, restarted home medications. continue home meds coreg, norvasc, losartan/HCTZ and spironolactone (5) CAD (coronary artery disease) Comment: - continue BB, lipitor - restart ASA when cleared by Ortho (6) CKD (chronic kidney disease) Comment: appears to be at baseline (7) DVT prophylaxis Comment: coumadin (8) Full code status Status and Disposition: inpatient s/p elective right total knee. Home today.
--- NOTE | 2016-07-31 05:55 | DS ---
DISCHARGE SUMMARY: DATE OF ADMISSION: 07/28/16 DATE OF DISCHARGE: 07/30/16 ATTENDING SURGEON: Sydnee Naranjo MD ADMISSION DIAGNOSIS: Severe end-stage osteoarthritis of the right knee. DISCHARGE DIAGNOSIS: Severe end-stage osteoarthritis of the right knee. SURGERY PERFORMED: Right total knee arthroplasty. HOSPITAL COURSE: The patient is a 60-year-old male who has had years of increasingly severe right knee pain. He failed conservative management with the course of antiinflammatories, pain medications, intraarticular cortisone injections, and physical therapy. He elected to proceed with surgical intervention and was taken to the operating room under the care of Dr. Sydnee Naranjo on the date of 07/28/16 for the aforementioned procedure. He tolerated the procedure well and left the operating room in stable condition. Postoperatively, he progressed very well with physical and occupational therapy goals. His blood pressures did run well higher on postoperative day #2 as his regular antihypertensive medications were initially held by the medical service to prevent a significant drop immediately postoperatively. He was reinstated on his medications and his blood pressures trended down by the afternoon of postoperative day #2 and felt he was stable medically for discharge to home. CONDITION ON DISCHARGE: He is afebrile, pulse 82, and last BP 160/94 at 1507 hours on 30 of July. His right knee incision is healing without evidence of infection. There is no active drainage. His calf is soft and nontender. He has active dorsiflexion and plantarflexion of the right ankle. PLAN: The patient will be discharged to home. He will discontinue Coumadin and will be placed on a regular Ecotrin (aspirin) 325 mg p.o. b.i.d. He will continue with the Colace and oxycodone for pain as needed. We recommend a followup in the office with Dr. Naranjo in roughly 10 to 14 day. If he notices any increased swelling, redness, drainage, calf pain, or swelling; the office will be contacted prior to the scheduled appointment. DOUG NICKERSON [id number]/[facility] #: [id number] MTDLaci
[2016-07-31] MEDS ORDERED: Scopolomine PATCH Remove* 1 NOTE MISC PATCH OFF ONE (06:00)
[2016-07-31 10:11] LABS: Rapid HIV INT CONT QC Line Present
[2016-07-31 10:12] LABS: Manual Entry Verification BM; Rapid HIV Kit Lot# F209005
== END 2016-07-30 17:41 | disposition home health service (06) | DRG 302 ==
LOC: AA 06:33 → SSU 15:09
PROVIDERS: ADMIT Orthopaedic Surgery Adult Reconstructive Orthopaedic Surgery; ATTEND Orthopaedic Surgery Adult Reconstructive Orthopaedic Surgery
PROC: 0SRC0J9 Replacement of Right Knee Joint with Synthetic Substitute, Cemented, Open Approach (ICD-10-PCS; principal; 2016-07-28 07:45)
DX: M17.11 Unilateral primary osteoarthritis, right knee (principal); I12.9 Hypertensive chronic kidney disease with stage 1 through stage 4 chronic kidney disease, or unspecified chronic kidney disease; Z79.82 Long term (current) use of aspirin; E78.00 Pure hypercholesterolemia, unspecified; I25.2 Old myocardial infarction; Z82.49 Family history of ischemic heart disease and other diseases of the circulatory system; Z80.1 Family history of malignant neoplasm of trachea, bronchus and lung; I25.10 Atherosclerotic heart disease of native coronary artery without angina pectoris; N18.9 Chronic kidney disease, unspecified; R33.9 Retention of urine, unspecified; R73.9 Hyperglycemia, unspecified; E78.5 Hyperlipidemia, unspecified; Z82.3 Family history of stroke
CPT/HCPCS: 36415; 62327; 80048; 85025; 85610; 86703; 86803; 87340; 88305; 88311; 94760; A9270-GY; C1776; J0690; J0780; J1100; J1650; J2250; J2405; J2704; J2795; J3010

== ENCOUNTER 2017-01-07 11:00 | Inpatient (IN) | payer BC ==
--- NOTE | 2017-01-01 22:50 | HP ---
HISTORY AND PHYSICAL: DATE OF ADMISSION/SURGERY: 01/07/17 DATE OF OFFICE VISIT: 01/01/17 SURGEON: Sydnee Naranjo MD * (DICTATED BY DOUG BOSS) PROCEDURE: Left total knee arthroplasty. CHIEF COMPLAINT: Left knee pain. HISTORY OF PRESENT ILLNESS: Arron is a 61-year-old gentleman with complaints of left knee pain secondary to end-stage osteoarthritis. He has failed conservative management, has elected to proceed with a left total knee arthroplasty, surgery is scheduled for 01/07/[address] Naranjo. PAST MEDICAL HISTORY: Hypertension, high cholesterol, and history of an [place] in 1998. PAST SURGICAL HISTORY: Right total knee arthroplasty, angioplasty, right knee arthroscopy. CURRENT MEDICATIONS: 1. Amlodipine 5 mg daily. 2. Atorvastatin calcium 10 mg daily. 3. Carvedilol 25 mg. 4. Losartan potassium/hydrochlorothiazide 100-25 mg daily. 5. Spironolactone 50 mg. 6. Aspirin 81 mg daily. ALLERGIES: No known drug allergies. FAMILY HISTORY: Lung cancer and hypertension. SOCIAL HISTORY: He is a 61-year-old gentleman, lives with his partner. He does not smoke or use drugs. REVIEW OF SYSTEMS: A complete 14-point review of systems was reviewed with the patient, was all negative or noncontributory. PHYSICAL EXAMINATION GENERAL: He is well developed, well nourished, in no acute distress. VITAL SIGNS: He stands 6 feet tall, weighs 230 pounds, his blood pressure is 151/102, his heart rate is 74. HEENT: Normocephalic, atraumatic. NECK: Supple. No palpable lymph nodes. PULMONARY: Lungs are clear to auscultation bilaterally. CARDIO: Regular rate and rhythm. Strong S1 and S2. ABDOMEN: Soft, nontender, and nondistended. NEUROLOGIC: He is alert and oriented x3. Cranial nerves II through XII are intact. MUSCULOSKELETAL: Left lower extremity, skin is intact. There are no open wounds or abrasions. 5 to 125 degrees of range of motion. His lower extremity muscle group strengths are intact to 5/5. He has 2+ dorsalis pedis pulses and intact sensation. ASSESSMENT AND PLAN: Arron is a 61-year-old gentleman with continued complaints of left knee pain secondary to advanced osteoarthritis. He has failed conservative management and has elected to proceed with a left total knee arthroplasty, which is scheduled for 01/07/[address] Naranjo discussed the risks and benefits of the surgery at today's visit and all of his questions were answered. Percocet and Coumadin were sent to his pharmacy for postoperative pain control and DVT prophylaxis. He will see Dr. Naranjo back 2 weeks after the surgery. DOUG BOSS [id number]/[facility] #: [id number] [facility]
[2017-01-18] MEDS ORDERED: Buffered Lidocaine 0.9% SYRIN* 5 ML/SYR SYRINGE INTRADERM ONE (11:09)
[2017-01-19] MEDS ORDERED: Famotidine IV* 10 MG/ML 2 ML (20 mg) IV ONE (06:00)
[2017-01-19] MEDS ORDERED: Gabapentin CAP(*) 300 MG PO ONE (07:55)
[2017-01-19] MEDS ORDERED: fentaNYL* 50 MCG/ML 2 ML VIAL (100 MCG VIAL) ONE (11:58)
[2017-01-19] MEDS ORDERED: Midazolam* 1 MG/ML 5 ML VIAL (5 MG) ONE (11:58)
[2017-01-19] MEDS ORDERED: Famotidine IV* 10 MG/ML 2 ML (20 mg) ONE (12:18)
[2017-01-19] MEDS ORDERED: ceFAZolin 2 GM PREMIX (*) 50 ML IVPB ONE (12:18)
[2017-01-19 13:00] LABS: BUN/Creatinine Ratio 20.6 (8-20); Blood Urea Nitrogen 36 mg/dL (6-24); CO2 Carbon Dioxide 20 mmol/L (22-32); Calcium 9.5 mg/dL (8.6-10.3); Chloride 108 mmol/L (101-111); EGFR African American 51.2 (>60); EGFR Non-African American 39.8 (>60); Glucose 103 mg/dL (70-100); Sodium 135 mmol/L (133-145)
[2017-01-19 13:30] LABS: Anion Gap 7 mmol/L (2-11)
[2017-01-19] MEDS ORDERED: ROPIVACAINE 5 MG/ML 30 ML BTL (0.5%) ONE (14:04)
[2017-01-19] MEDS ORDERED: Dexamethasone IV* 4 MG/ML 1 ML (4 MG) ONE (14:04)
[2017-01-19] MEDS ORDERED: Ondansetron INJ* 2 MG/ML VIAL ONE (14:04)
[2017-01-19] MEDS ORDERED: KETAMINE HCL* 50 MG/ML 10 ML VIAL ONE (14:04)
[2017-01-19] MEDS ORDERED: Lidocaine 2% PF * 5 ML VIAL ONE (14:04)
[2017-01-19] MEDS ORDERED: Propofol* 10 MG/ML 20 ML BTL IV PUSH ONE ×2 (14:04→16:12)
[2017-01-19] MEDS ORDERED: Morphine PF AMP (0.5MG/ML)* 5 MG/10 ML AMP ONE (14:05)
[2017-01-19 14:18] LABS: BUN/Creatinine Ratio 22.2 (8-20); Calcium 9.4 mg/dL (8.6-10.3); EGFR African American 57.6 (>60); EGFR Non-African American 44.8 (>60); Potassium 4.2 mmol/L (3.5-5.0)
[2017-01-19] MEDS ORDERED: DiMENhydriNATE IV* 50 MG/ML VIAL IV PUSH PRN (15:01)
[2017-01-19] MEDS ORDERED: HYDROmorphone INJ* 1 MG/ML CARPUJECT SYRINGE IV PRN (15:01)
[2017-01-19] MEDS ORDERED: oxyCODONE/Acetamin 5/325 MG* TAB PO PRN (15:01)
[2017-01-19] MEDS ORDERED: Gabapentin CAP(*) 100 MG PO ONE (15:02)
[2017-01-19] MEDS ORDERED: Naloxone* 0.4 MG/ML 1 ML VIAL IV PRN (15:21)
[2017-01-19] MEDS ORDERED: Ondansetron INJ* 2 MG/ML VIAL IV PRN (15:21)
[2017-01-19] MEDS ORDERED: Nalbuphine* 20 MG/ML 1 ML VIAL IV PRN (15:21)
[2017-01-19] MEDS ORDERED: oxyCODONE TAB* 5 MG TAB PO PRN (15:28)
[2017-01-19] MEDS ORDERED: Polyethylene Glycol 3350* 17 GM PACKET PO PRN (16:11)
[2017-01-19] MEDS ORDERED: Acetaminophen TAB* 325 MG PO PRN (16:11)
[2017-01-19] MEDS ORDERED: Bisacodyl SUPP* 10 MG SUPP PR PRN (16:11)
--- NOTE | 2017-01-19 19:00 | RAD ---
INDICATION: Status post total left knee replacement surgery. TECHNIQUE: 2 views of the left knee were obtained. FINDINGS: The patient is status post total left knee replacement surgery. The bones and prostheses are in normal alignment. There is a surgical drain present anterior to the distal femur. IMPRESSION: STATUS POST TOTAL LEFT KNEE REPLACEMENT SURGERY.
[2017-01-19] MEDS: Docusate CAP* 100 MG PO SCH (20:40)
[2017-01-19] MEDS ORDERED: Warfarin TAB(*) 6 MG PO ONE (21:00)
[2017-01-19] MEDS: ceFAZolin 1 GM VIAL(*) 1 GM in NS 0.9% 50 ML* 50 ML IVPB SCH (23:12)
--- NOTE | 2017-01-19 23:16 | CONS ---
CONSULTATION REPORT: DATE OF CONSULTATION: 01/19/17 PROVIDER: Dr. Naranjo. CONSULTING PHYSICIAN: Dr. Garcia. PROCEDURE: Today, he had a left total knee arthroplasty. CHIEF COMPLAINT: Postop left total knee arthroplasty. HISTORY OF PRESENT ILLNESS: Arron is a 61-year-old gentleman with complaints of left knee pain secondary to end-stage osteoarthritis. He failed conservative management and elected to have a left total knee arthroplasty surgery, which he had today. He had spinal anesthesia with an EBL of 200 mL. PAST MEDICAL HISTORY: He has hypertension and hyperlipidemia and history of kidney stones. PAST SURGICAL HISTORY: He has had a right total knee arthroplasty. CURRENT MEDICATIONS: 1. Morphine 2 mg p.o. every a.m. 2. Diovan 1 tab p.o. every a.m. 3. Spironolactone 50 mg p.o. every a.m. 4. Coreg 1 tab p.o. every a.m. 5. Lipitor 20 mg p.o. every a.m. 6. Aspirin 81 mg every a.m. 7. Amlodipine 1 tab p.o. every a.m. ALLERGIES: He has no known drug allergies. FAMILY HISTORY: Lung cancer and hypertension. SOCIAL HISTORY: He is a 61-year-old gentleman, lives with his girlfriend. He does not smoke or use drugs. REVIEW OF SYSTEMS: A complete 14-point review of systems was reviewed with the patient, was all negative or noncontributory. He denies nausea, vomiting, chest pain or shortness of breath at this time. PHYSICAL EXAM: General: He is well developed, well nourished, in no acute distress, lying on the bed. Alert and oriented. Eating ice chips. Current vital signs: Temperature 96.8, heart rate 66, respiratory rate 16, sats 100% on room air, blood pressure is 150/95. HEENT: Normocephalic, atraumatic. Neck: Supple. No palpable lymph nodes. Pulmonary: Lungs are clear to auscultation bilaterally. Cardio: Regular rate and rhythm. S1, S2 strong. Abdomen: Round, soft, nontender, nondistended. Neuro: He is alert and oriented x2. Cranial nerves II through XII are intact. Musculoskeletal: Left lower extremity with an Niall wrap and ice around. Able to move his feet bilaterally. Good pedal pulses. Dressing is dry and intact to the left leg. 2+ positive dorsalis pedis pulses and intact sensation. ASSESSMENT: Arron is 61 years old. He is now postop left total knee arthroplasty, doing well, no nausea or vomiting, no chest pain, no complaints of shortness of breath. Will be admitted to the surgical floor. Dr. Naranjo will be managing his surgical postop course. PLAN: 1. Left total knee arthroplasty. Management per Orthopedic. 2. Hypertension. We will continue his home medications of amlodipine, Coreg, spironolactone, and Diovan as his blood pressure tolerates with hold parameters. 3. Hyperlipidemia. We will continue his Lipitor. Heart healthy diet. 4. DVT prophylaxis per surgical services. He is a full code and his girlfriend is his healthcare proxy. Time spent on this exam was approximately 60 minutes with greater than half the time spent face to face with the patient obtaining my history and physical. The other half of the time was spent going over th eplan of care and implementing the plan of care. Discussed with my attending Dr Garcia who is in agreement with the plan. LEONARDO PERDOMO, WEST [id number]/[facility] #: [id number] KYM
[2017-01-20] MEDS: oxyCODONE TAB* 5 MG TAB PO PRN ×4 (01:07→20:18)
--- NOTE | 2017-01-20 05:11 | OP ---
OPERATIVE NOTE: DATE OF OPERATION: 01/19/17 DATE OF : 55 SURGEON: Sydnee Naranjo MD ELECTRONIC FUNDS TRANSFER COORDINATOR: DOUG Romero. Ms. Haywood did help throughout the procedure with preparation, leg wound retraction, manipulation o f the knee, and wound closure. ANESTHESIOLOGIST: Dr. Mayberry. ANESTHESIA: Spinal. PRE-OP DIAGNOSIS: Severe end-stage degenerative osteoarthritis of the left knee joint. POST-OP DIAGNOSIS: Severe end-stage degenerative osteoarthritis of the left knee joint. OPERATIVE PROCEDURE: Left total knee arthroplasty. TOURNIQUET TIME: 76 minutes. ESTIMATED BLOOD LOSS: 300 cc. COMPLICATIONS: None. SPECIMENS: Bone and cartilage from the left knee joint sent to Pathology. HARDWARE USED: This is cemented Ordonez and Nephew total knee arthroplasty. For the cement, 2 packag es of simplex bone cement, for the femur a size 7 left posterior stabilized Legion Oxinium femoral c omponent, for a tibia a size 6 left tibial base plate, for the patella 38 mm 3 peg all poly patellar , and for the insert a 9 mm posterior stabilized articular insert size 5/6. BRIEF HISTORY/INDICATIONS: Mr. Ramirez is a 61-year-old gentleman with acute on chronic left knee pa in over the last 6 months. This became severe pain which was not resolved with conservative treatme nt including antiinflammatories, pain medication, intraarticular injection, and physical therapy. D ue to continued severe pain and decreased quality of life, he elected to undergo a left total knee a rthroplasty. Informed consent was obtained from the patient. He understood the risks of the surger y included but were not limited to bleeding, infection, damage to nearby structures, continued pain, need for further surgery, intraoperative fracture, nerve palsy, hardware failure or loosening, knee stiffness, loss of motion, stroke, heart attack, blood clot, and . He wished to proceed. INTRAOPERATIVE FINDINGS: Intraoperatively, the patient was noted to have lateral femoral condylar h ypoplasia. He had tricompartmental loss of cartilage. He had intraarticular calcification of the c artilage and soft tissue indicating a chondrocalcinosis type picture. DESCRIPTION OF PROCEDURE: Mr. Ramirez was identified in the preanesthesia unit. His left lower extre mity was marked as the correct operative site. Informed consent was signed and placed in the chart. The patient was taken to the operating room and placed under spinal anesthesia. A Bryson catheter was placed. Tourniquet was placed on the left thigh. Left lower extremity was prepped and draped i n the usual sterile fashion. Preop time-out was made to correctly identify the patient side and sit e. Appropriate perioperative antibiotics were given within 1 hour of incision. Tourniquet was inflated. A 14 cm midline incision was made with a 10 blade and carried down to the extensor mechanism. New 10-blade was used to make a standard medial parapatellar arthrotomy. [place]nam la was subluxed laterally. Electrocautery was used to subperiosteally elevate the soft tissue off t he superomedial tibia to the mid sagittal plane. The knee was flexed up. Anterior horn of the lateral meniscus and ACL were sharply released. A dri ll was used to enter the distal femur. Intramedullary distal femoral cutting guide was pinned on to the distal femur. The oscillating saw was used to make the distal femoral cut. Next, the external rotation guide was pinned on the distal femur. Distal femur was sized to a size 7. Size 7 multicu tting jig was chosen and pinned on the distal femur. Oscillating saw was used to make the appropria te 4 chamfer cuts. Bony fragments were carefully removed. The PCL was completely released. The tibia was subluxed anteriorly. Extramedullary tibial cutting g uide was pinned on the proximal tibia. Oscillating saw was used to make the proximal tibial cut per pendicular to the mechanical axis of the tibia. The bone was carefully removed from the proximal tibia. Knee was brought out into full extension. A spacer block was placed. There was good medial and lateral ligamentous balancing. Good flexion a nd extension gap balancing. Alignment seemed to be in a few degrees of valgus. The knee was flexed up. Canal finder was used to enter the proximal tibial canal. Intramedullary tibial cutting guide was then placed. A cleanup cut with approximately 2 mm of medial bone was resected here. The knee was brought out into full extension and the spacer block had excellent fit. The knee was flexed up . Tibial tray and drop riley showed satisfactory tibial cut with improved alignment. Lamina chemical applicator was placed both medially and laterally. Any remaining meniscus was carefully remove d using electrocautery. Any posterior osteophytes were removed with a curved osteotome. Trial size 7 left femoral component was impacted on to the distal femur and had excellent fit. The box for th e posterior stabilized implant was prepared using a reamer and box-cut osteotome. Trial size 6 tibial tray with a 9-mm insert trial was placed. The knee was taken through range of m otion and noted to have full extension to 130 degrees of flexion with good patellofemoral tracking. The patella was everted. 9 mm of patellar bone and cartilage were carefully removed using an oscill ating saw. The patella was sized to a size 38. Three peg holes were drilled through the size 38 gu chayo. A trial 38 patella was placed and the knee was taken through a range of motion. There was goo d patellofemoral tracking. All trials were carefully removed. The tibia was subluxed anteriorly and sized to a size 6. Proxim al tibia was prepared using a size 6 keel punch. All bony cut surfaces were copiously irrigated wit h sterile saline. Final implants were cemented into place starting with the tibia followed by the f emur and last the patella. A 9-mm insert trial was placed and the knee was brought out into full ex tension. The tourniquet was turned down at 76 minutes. The knee was copiously irrigated with steri le saline. Once the cement had fully cured, the insert trial was removed. Any excess cement was ca refully removed from around the implants and capsule. Electrocautery was used to obtain meticulous hemostasis. Final insert chosen was a 9-mm posterior stabilized articular insert size 5/6. This was locked into position on the tibial tray. Stability of the insert was checked and rechecked and noted to be stab le. Extensor mechanism was closed using interrupted #1 Vicryl over a medium Hemovac drain. The rest of the incision was closed in a layered fashion using 0 and 2-0 Vicryl. Skin was closed using 3-0 nylo n suture. Sterile Xeroform, 4x4s, and Webril were used to cover the incision. Niall wrap and cold pa ck were placed over this. The patient's anesthesia was reversed without difficulty. He was taken to the PACU in stable condit ion. Intended weight bearing will be weight bearing as tolerated. Intended DVT prophylaxis will be Coumadin with a Lovenox bridge. [id number]/[facility] #: [id number]
[2017-01-20 06:00] LABS: Hematocrit 35 % (42-52); Hemoglobin 12.1 g/dl (14.0-18.0)
[2017-01-20 06:09] LABS: BUN/Creatinine Ratio 18.9 (8-20); EGFR African American 62.1 (>60); EGFR Non-African American 48.3 (>60)
[2017-01-20] MEDS: ceFAZolin 1 GM VIAL(*) 1 GM in NS 0.9% 50 ML* 50 ML IVPB SCH ×2 (06:34→14:54)
[2017-01-20] MEDS ORDERED: Ondansetron TAB* 4 MG PO PRN (06:49)
[2017-01-20] MEDS ORDERED: Morphine INJ* 2 MG/ML 1 ML SYRINGE (TWO MG - NEW SYRINGE VERSION) IV PRN (06:49)
[2017-01-20] MEDS ORDERED: oxyCODONE/Acetamin 5/325 MG* TAB PO PRN (06:49)
[2017-01-20] MEDS ORDERED: diPHENhydraMINE IV* 50 MG/ML 1 ml VIAL (BENADRYL) IV PRN (06:49)
[2017-01-20] MEDS: oxyCODONE/Acetamin 5/325 MG* TAB PO PRN ×4 (07:27→21:32)
[2017-01-20] MEDS: Hydrochlorothiazide TAB* 25 MG PO SCH (08:35)
[2017-01-20] MEDS: amLODIPine TAB* 5 MG PO SCH (08:35)
[2017-01-20] MEDS: Atorvastatin* 20 MG TAB PO SCH (08:35)
[2017-01-20] MEDS: Docusate CAP* 100 MG PO SCH ×2 (08:36→20:26)
[2017-01-20] MEDS: Spironolactone TAB* 25 MG PO SCH (08:36)
[2017-01-20] MEDS: Carvedilol TAB* 25 MG PO SCH (08:36)
[2017-01-20] MEDS: Valsartan TAB* 160 MG PO SCH (08:36)
--- NOTE | 2017-01-20 11:42 | PN ---
Progress Note - Progress Note Date of Service: 01/20/17 SOAP: Subjective: []Patient seen OOB in chair. Having difficulty managing left knee pain. Denies SOB, CP or dizziness. Objective: [] Vital Signs Temp 99.0 F 01/20/17 07:14 Pulse 108 01/20/17 09:39 Resp 18 01/20/17 09:41 BP 160/102 01/20/17 07:14 Pulse Ox 93 01/20/17 07:14 Intake & Output 01/19/17 01/20/17 01/20/17 18:59 06:59 18:59 Intake Total 2500 1880 240 Output Total 350 1200 Balance 2150 680 240 Weight 225 lb Intake: IV Fluids 2500 1030 LR 880 lr 2500 150 Oral 850 240 Output: Bryson 350 1200 Other: # Bowel Movements 0 Laboratory Results - last 24 hr 01/19/17 01/19/17 01/19/17 12:28 12:28 13:39 Hgb Hct INR (Anticoag Therapy) Sodium 135 137 Potassium TNP 4.2 Chloride 108 110 Carbon Dioxide 20 L 21 L Anion Gap 7 6 BUN 36 H 35 H Creatinine 1.75 H 1.58 H Est GFR ( Amer) 51.2 57.6 Est GFR (Non-Af Amer) 39.8 44.8 BUN/Creatinine Ratio 20.6 H 22.2 H Glucose 103 H 98 Calcium 9.5 9.4 Blood Type O Positive Antibody Screen Negative 01/20/17 01/20/17 01/20/17 05:31 05:31 05:31 Hgb 12.1 L Hct 35 L INR (Anticoag Therapy) 1.06 Sodium 133 Potassium 4.0 Chloride 104 Carbon Dioxide 21 L Anion Gap 8 BUN 28 H Creatinine 1.48 H Est GFR ( Amer) 62.1 Est GFR (Non-Af Amer) 48.3 BUN/Creatinine Ratio 18.9 Glucose 116 H Calcium 9.0 Blood Type Antibody Screen Left knee hemovac drain discontinued by Dr. Naranjo this am, no complications, tip intact calf NT +DF/PF left ankle sensation intact distally Assessment: []s/p Left total knee arthroplasty POD #1 Plan: []PT/OT WBAT LLE Coumadin with Lovenox bridge- 8 mg today Torodol for breakthru pain Home if doing well/ pain better managed.
[2017-01-20] MEDS ORDERED: Ketorolac INJ* 30 MG/ML 1 ML VIAL IV PUSH PRN (11:43)
[2017-01-20] MEDS: Enoxaparin(*) 30 MG/0.3 ML SYR SUBCUT SCH (13:07)
[2017-01-20] MEDS ORDERED: Warfarin TAB(*) 4 MG PO ONE (17:00)
--- NOTE | 2017-01-20 17:19 | PN ---
Subjective Date of Service: 01/20/17 Interval History: Patient seen and examined at bedside. Patient denies dizziness, shortness of breath. Pain relatively well controlled. Making progress with PT. Family History: Unchanged from Admission Social History: Unchanged from Admission Past Medical History: Unchanged from Admission Objective Active Medications: Acetaminophen (Tylenol Tab*) 650 mg PO Q4H PRN Amlodipine Besylate (Norvasc Tab*) 5 mg PO QAM [facility] Atorvastatin Calcium (Lipitor*) 20 mg PO QAM [facility] Bisacodyl (Dulcolax Supp*) 10 mg WA DAILY PRN Carvedilol (Coreg Tab*) 25 mg PO QAM [facility] Diphenhydramine HCl (Benadryl Iv*) 12.5 mg IV Q6H PRN Docusate Sodium (Colace Cap*) 100 mg PO BID [facility] Enoxaparin Sodium (Lovenox(*)) 30 mg SUBCUT Q24H [facility] Hydrochlorothiazide (Hydrodiuril Tab*) 25 mg PO DAILY [facility] Lactated Ringer's (Lactated Ringers 1000 Ml Bag*) 1,000 mls @ 100 mls/hr IV PER RATE [facility] Ketorolac Tromethamine (Toradol Inj*) 30 mg IV PUSH Q6H PRN Lactulose (Lactulose*) 30 ml PO Q6H PRN Magnesium Hydroxide (Milk Of Magnesia Liq*) 30 ml PO Q6H PRN Morphine Sulfate (Morphine Inj (Syringe)*) 2 mg IV Q2H PRN Ondansetron HCl (Zofran Tab*) 4 mg PO Q6H PRN Oxycodone HCl (Roxycodone Tab*) 10 mg PO Q4H PRN Oxycodone/Acetaminophen (Percocet 5/325 Tab*) 1 tab PO Q3H PRN Oxycodone/Acetaminophen (Percocet 5/325 Tab*) 2 tab PO Q3H PRN Pharmacy Profile Note (Coumadin Daily Reminder*) 1 note FOLLOW UP 1700 [facility] Polyethylene Glycol/Electrolytes (Miralax*) 17 gm PO DAILY PRN Spironolactone (Aldactone Tab*) 50 mg PO QAM [facility] Valsartan (Diovan Tab*) 160 mg PO QAM [facility] 01/20/17 16:22 Temperature 96.6 F Pulse Rate 94 Respiratory 16 Rate Blood Pressure 139/99 (mmHg) O2 Sat by Pulse 95 Oximetry Oxygen Devices in Use Now: None Appearance: sitting up in chair, NAD Eyes: No Scleral Icterus, PERRLA Ears/Nose/Mouth/Throat: NL Teeth, Lips, Gums Neck: NL Appearance and Movements; NL JVP Respiratory: Symmetrical Chest Expansion and Respiratory Effort, Clear to Auscultation Cardiovascular: NL Sounds; No Murmurs; No JVD, RRR Abdominal: NL Sounds; No Tenderness; No Distention Extremities: No Edema Skin: No Rash or Ulcers, - - Left knee incision C/D/I; draim removed Neurological: Alert and Oriented x 3 Lines/Tubes/Other Access: Clean, Dry and Intact Peripheral IV Nutrition: Taking PO's Result Diagrams: 01/20/17 05:31 01/20/17 05:31 Assess/Plan/Problems-Billing Patient is a 61 y/o M w/ a hx of HTN and HLD who underwent an elective left total knee replacement with Dr. Naranjo on 01/19/2017. Hospitalists were asked to assist with the management of the patient's other medical co-morbidities. - Patient Problems (1) Status post total left knee replacement Comment: Management per Orthopedic Surgery. Continue oxycodone for pain control. PT/OT. H/H stable today. (2) CAD (coronary artery disease) Comment: Continue Coreg and Lipitor; Restart ASA when ok with Ortho (3) HTN (hypertension) Comment: Controlled. Continue home medication regimen: Coreg, norvasc, Diovan, and spironolactone. (4) Hyperlipidemia Comment: Continue statin. (5) CKD (chronic kidney disease) Comment: Cr 1.4 today. D/C Toradol. (6) DVT prophylaxis Comment: Lovenox as bridge to warfarin (7) Full code status Status and Disposition: Inpatient; Dispo per Orthopedic surgery.
[2017-01-21] MEDS: oxyCODONE/Acetamin 5/325 MG* TAB PO PRN ×5 (00:38→21:56)
[2017-01-21] MEDS: oxyCODONE TAB* 5 MG TAB PO PRN ×3 (07:16→18:33)
[2017-01-21 07:39] LABS: Hematocrit 32 % (42-52); Hemoglobin 11.2 g/dl (14.0-18.0)
[2017-01-21 07:52] LABS: Calcium 8.7 mg/dL (8.6-10.3); EGFR African American 53.3 (>60); EGFR Non-African American 41.5 (>60); Potassium 3.7 mmol/L (3.5-5.0)
[2017-01-21] MEDS: Magnesium Hydroxide LIQ* 30 ML UDC PO PRN ×2 (09:06→14:42)
[2017-01-21] MEDS: Valsartan TAB* 160 MG PO SCH (09:06)
[2017-01-21] MEDS: Atorvastatin* 20 MG TAB PO SCH (09:06)
[2017-01-21] MEDS: Hydrochlorothiazide TAB* 25 MG PO SCH (09:06)
[2017-01-21] MEDS: Carvedilol TAB* 25 MG PO SCH (09:07)
[2017-01-21] MEDS: Spironolactone TAB* 25 MG PO SCH (09:07)
[2017-01-21] MEDS: Docusate CAP* 100 MG PO SCH ×2 (09:07→19:33)
[2017-01-21] MEDS: amLODIPine TAB* 5 MG PO SCH (09:07)
--- NOTE | 2017-01-21 09:50 | PN ---
Progress Note - Progress Note Date of Service: 01/21/17 SOAP: Subjective: []Patient seen at bedside, still c/o moderate left knee pain but feels that overall it is slightly better than yesterday. He does not feel ready for discharge home today. Objective: [] Vital Signs Temp 98.0 F 01/21/17 07:26 Pulse 93 01/21/17 07:26 Resp 18 01/21/17 07:26 BP 152/106 01/21/17 07:26 Pulse Ox 93 01/21/17 07:26 Intake & Output 01/20/17 01/21/17 01/21/17 18:59 06:59 18:59 Intake Total 2109 1080 360 Output Total 500 400 Balance 1609 1080 -40 Intake: IV Fluids 889 LR 889 IVPB 110 LR 110 Oral 1110 1080 360 Output: Urine 500 400 Laboratory Results - last 24 hr 01/21/17 01/21/17 01/21/17 07:11 07:11 07:11 Hgb 11.2 L Hct 32 L INR (Anticoag Therapy) 1.21 H Sodium 132 L Potassium 3.7 Chloride 98 L Carbon Dioxide 27 Anion Gap 7 BUN 27 H Creatinine 1.69 H Est GFR ( Amer) 53.3 Est GFR (Non-Af Amer) 41.5 BUN/Creatinine Ratio 16.0 Glucose 112 H Calcium 8.7 Left knee dressings were changed, incision benign, some scant bloody drainage from hemovac site calf NT +DF/PF left ankle sensation and circulation intact distally Assessment: []s/p Left total knee arthroplasty POD #2 Plan: []PT/OT WBAT LLE Pain management- Toradol avail prn Home Wednesday with VNS Coumadin with Lovenox bridge- 6mg today
[2017-01-21] MEDS: Enoxaparin(*) 30 MG/0.3 ML SYR SUBCUT SCH (14:43)
--- NOTE | 2017-01-21 16:30 | PN ---
Subjective Date of Service: 01/21/17 Interval History: Patient seen and examined at bedside. Patient states pain controlled. Working well with PT. BP controlled. Family History: Unchanged from Admission Social History: Unchanged from Admission Past Medical History: Unchanged from Admission Objective Active Medications: Acetaminophen (Tylenol Tab*) 650 mg PO Q4H PRN Amlodipine Besylate (Norvasc Tab*) 5 mg PO QAM [facility] Atorvastatin Calcium (Lipitor*) 20 mg PO QAM [facility] Bisacodyl (Dulcolax Supp*) 10 mg MO DAILY PRN Carvedilol (Coreg Tab*) 25 mg PO QAM [facility] Diphenhydramine HCl (Benadryl Iv*) 12.5 mg IV Q6H PRN Docusate Sodium (Colace Cap*) 100 mg PO BID [facility] Enoxaparin Sodium (Lovenox(*)) 30 mg SUBCUT Q24H [facility] Hydrochlorothiazide (Hydrodiuril Tab*) 25 mg PO DAILY [facility] Lactulose (Lactulose*) 30 ml PO Q6H PRN Magnesium Hydroxide (Milk Of Magnesia Liq*) 30 ml PO Q6H PRN Morphine Sulfate (Morphine Inj (Syringe)*) 2 mg IV Q2H PRN Ondansetron HCl (Zofran Tab*) 4 mg PO Q6H PRN Oxycodone HCl (Roxycodone Tab*) 10 mg PO Q4H PRN Oxycodone/Acetaminophen (Percocet 5/325 Tab*) 1 tab PO Q3H PRN Oxycodone/Acetaminophen (Percocet 5/325 Tab*) 2 tab PO Q3H PRN Pharmacy Profile Note (Coumadin Daily Reminder*) 1 note FOLLOW UP 1700 [facility] Polyethylene Glycol/Electrolytes (Miralax*) 17 gm PO DAILY PRN Spironolactone (Aldactone Tab*) 50 mg PO QAM [facility] Valsartan (Diovan Tab*) 160 mg PO QAM [facility] Warfarin Sodium (Coumadin Tab(*)) 6 mg PO ONCE@1700 [facility] Vital Signs 01/20/17 01/20/17 01/20/17 18:21 20:18 20:21 Temperature Pulse Rate Respiratory 18 15 15 Rate Blood Pressure (mmHg) O2 Sat by Pulse Oximetry 01/20/17 01/20/17 01/20/17 20:26 21:32 22:18 Temperature Pulse Rate Respiratory 16 15 15 Rate Blood Pressure (mmHg) O2 Sat by Pulse Oximetry 01/20/17 01/21/17 01/21/17 23:28 00:00 00:38 Temperature 99.8 F Pulse Rate 117 109 Respiratory 16 16 15 Rate Blood Pressure 183/110 153/96 (mmHg) O2 Sat by Pulse 95 94 Oximetry 01/21/17 01/21/17 01/21/17 02:19 03:28 03:34 Temperature 98.6 F 98.4 F Pulse Rate 93 98 Respiratory 15 16 Rate Blood Pressure 143/91 128/83 (mmHg) O2 Sat by Pulse 92 93 Oximetry 01/21/17 01/21/17 01/21/17 03:59 05:59 07:16 Temperature Pulse Rate Respiratory 15 14 18 Rate Blood Pressure (mmHg) O2 Sat by Pulse Oximetry 01/21/17 01/21/17 01/21/17 07:26 08:00 09:16 Temperature 98.0 F Pulse Rate 93 Respiratory 18 18 18 Rate Blood Pressure 152/106 (mmHg) O2 Sat by Pulse 93 Oximetry 01/21/17 01/21/17 01/21/17 10:09 11:23 12:09 Temperature 97.6 F Pulse Rate 87 Respiratory 18 14 18 Rate Blood Pressure 128/81 (mmHg) O2 Sat by Pulse 93 Oximetry 01/21/17 01/21/17 01/21/17 13:07 14:42 15:07 Temperature Pulse Rate Respiratory 18 18 18 Rate Blood Pressure (mmHg) O2 Sat by Pulse Oximetry 01/21/17 15:49 Temperature 98.6 F Pulse Rate 92 Respiratory 17 Rate Blood Pressure 136/79 (mmHg) O2 Sat by Pulse 93 Oximetry Oxygen Devices in Use Now: None Appearance: sitting up in NAD Eyes: No Scleral Icterus, PERRLA Ears/Nose/Mouth/Throat: NL Teeth, Lips, Gums Neck: NL Appearance and Movements; NL JVP Respiratory: Symmetrical Chest Expansion and Respiratory Effort, Clear to Auscultation Cardiovascular: NL Sounds; No Murmurs; No JVD, RRR Abdominal: NL Sounds; No Tenderness; No Distention Extremities: No Edema Skin: - - L knee incision C/D/I Neurological: Alert and Oriented x 3 Lines/Tubes/Other Access: Clean, Dry and Intact Peripheral IV Nutrition: Taking PO's Result Diagrams: 01/21/17 07:11 01/21/17 07:11 Assess/Plan/Problems-Billing Patient is a 61 y/o M w/ a hx of HTN and HLD who underwent an elective left total knee replacement with Dr. Naranjo on 01/19/2017. Hospitalists were asked to assist with the management of the patient's other medical co-morbidities. - Patient Problems (1) Status post total left knee replacement Comment: Management per Orthopedic Surgery. Continue oxycodone for pain control. PT/OT. H/H stable. (2) CAD (coronary artery disease) Comment: Continue Coreg and Lipitor; Restart ASA when ok with Ortho (3) HTN (hypertension) Comment: Controlled. Continue home medication regimen: Coreg, norvasc, Diovan, and spironolactone. (4) Hyperlipidemia Comment: Continue statin. (5) CKD (chronic kidney disease) Comment: Cr stable at 1.6 (6) DVT prophylaxis Comment: Lovenox as bridge to warfarin (7) Full code status Status and Disposition: Inpatient; Dispo per Orthopedic surgery.
[2017-01-21] MEDS: Morphine TAB Extended Release (*) 30 MG TAB.ER PO SCH (16:46)
[2017-01-21] MEDS ORDERED: Warfarin TAB(*) 6 MG PO SCH (17:00)
[2017-01-22] MEDS: oxyCODONE TAB* 5 MG TAB PO PRN (01:01)
[2017-01-22] MEDS: oxyCODONE/Acetamin 5/325 MG* TAB PO PRN ×3 (04:26→11:20)
[2017-01-22] MEDS: Morphine TAB Extended Release (*) 30 MG TAB.ER PO SCH (05:19)
[2017-01-22 06:42] LABS: Hematocrit 30 % (42-52); Hemoglobin 10.3 g/dl (14.0-18.0); Mean Platelet Volume 9 um3 (7.4-10.4)
[2017-01-22 06:55] LABS: BUN/Creatinine Ratio 17.8 (8-20); Calcium 8.5 mg/dL (8.6-10.3); EGFR African American 55.6 (>60); EGFR Non-African American 43.2 (>60); Potassium 3.8 mmol/L (3.5-5.0)
[2017-01-22] MEDS: Hydrochlorothiazide TAB* 25 MG PO SCH (07:52)
[2017-01-22] MEDS: Atorvastatin* 20 MG TAB PO SCH (07:52)
[2017-01-22] MEDS: Spironolactone TAB* 25 MG PO SCH (07:53)
[2017-01-22] MEDS: Docusate CAP* 100 MG PO SCH (07:53)
[2017-01-22] MEDS: Valsartan TAB* 160 MG PO SCH (07:53)
[2017-01-22] MEDS: amLODIPine TAB* 5 MG PO SCH (07:53)
[2017-01-22] MEDS: Carvedilol TAB* 25 MG PO SCH (07:53)
[2017-01-22 09:12] VITALS: BP 125/78
--- NOTE | 2017-01-22 10:11 | PN ---
Progress Note - Progress Note Date of Service: 01/22/17 SOAP: Subjective: []Patient seen at bedside, Tired, pain left knee less intense. Ready to go home today. Objective: [] Vital Signs Temp 98.1 F 01/22/17 07:32 Pulse 89 01/22/17 07:32 Resp 16 01/22/17 07:53 BP 125/78 01/22/17 07:32 Pulse Ox 91 01/22/17 07:32 Intake & Output 01/21/17 01/22/17 01/22/17 18:59 06:59 18:59 Intake Total 560 800 465 Output Total 1000 700 Balance -440 100 465 Intake: Oral 560 800 465 Output: Urine 1000 700 Other: Estimated Void Medium # Bowel Movements 1 Estimated Stool Amount Small # Voids 1 Laboratory Results - last 24 hr 01/22/17 01/22/17 01/22/17 06:05 06:05 06:05 Hgb 10.3 L Hct 30 L Plt Count 128 L MPV 9 INR (Anticoag Therapy) 1.39 H Sodium 131 L Potassium 3.8 Chloride 97 L Carbon Dioxide 27 Anion Gap 7 BUN 29 H Creatinine 1.63 H Est GFR ( Amer) 55.6 Est GFR (Non-Af Amer) 43.2 BUN/Creatinine Ratio 17.8 Glucose 107 H Calcium 8.5 L Left knee incision is benign calf NT and soft Neuro remains intact LLE Assessment: []s/p LTK POD #3 Plan: []8 mg Coumadin today before discharge Discharge home with VNS Follow up as scheduled with Dr. Naranjo.
[2017-01-22] MEDS: Warfarin TAB(*) 4 MG PO ONE ×2 (11:38→12:43)
--- NOTE | 2017-01-23 02:18 | DS ---
DISCHARGE SUMMARY: DATE OF ADMISSION: 01/19/17 DATE OF DISCHARGE: 01/22/17 ATTENDING PHYSICIAN: Dr. Sydnee Naranjo * (DICTATED BY DOUG NICKERSON) ADMISSION DIAGNOSIS: Severe end-stage degenerative osteoarthritis of the left knee joint. DISCHARGE DIAGNOSIS: Severe end-stage degenerative osteoarthritis of the left knee joint. SURGERY PERFORMED: Left total knee arthroplasty. HOSPITAL COURSE: The patient is a 61-year-old male, who has had severe left knee pain over the last 6 months. Conservative management including anti- inflammatories, pain medications, and intra-articular cortisone injections as well as physical therapy did not alleviate his pain. He elected to proceed with left total knee arthroplasty and was taken to the operating room under the care of Dr. Sydnee Naranjo on the date of 01/19/17. The patient tolerated the procedure well and left the operating room in stable condition. Postoperatively , he progressed fairly well, although he had some difficulties with pain management postoperatively. He did master his PT/OT goals; however, by postoperative day #3, he was found to be stable for discharge medically and orthopedically to home. CONDITION ON DISCHARGE: He is afebrile. His vital signs stable. His left knee incision was healing without evidence of infection. His calf is soft and nontender. His neurovascular status is intact distally. PLAN: Discharge to home, bearing weight as tolerated on the left lower extremity. He was given 8 mg of Coumadin prior to his discharge today on and is instructed to take 2 mg of Coumadin on Wednesday01/23/17 and 2 mg of Coumadin on 01/24/17. He will repeat INR blood draw on 01/25/17 , with dosages to follow from the office. He is to follow up as scheduled with Dr. Naranjo in roughly 10 to 14 days. If he has any problems with increased swelling, increased pain, calf pain or swelling, fever or chills, the office will be contacted prior to his scheduled appointment. DOUG NICKERSON [id number]/[facility] #: [id number] [facility] CENTERLaci
== END 2017-01-22 11:15 | disposition home health service (06) | DRG 302 ==
LOC: AA 01-19 11:23 → SSU 01-19 19:24
PROVIDERS: ADMIT Orthopaedic Surgery Adult Reconstructive Orthopaedic Surgery; ATTEND Orthopaedic Surgery Adult Reconstructive Orthopaedic Surgery
PROC: 0SRD0J9 Replacement of Left Knee Joint with Synthetic Substitute, Cemented, Open Approach (ICD-10-PCS; principal; 2017-01-19 14:00)
DX: M17.12 Unilateral primary osteoarthritis, left knee (principal); I12.9 Hypertensive chronic kidney disease with stage 1 through stage 4 chronic kidney disease, or unspecified chronic kidney disease; E78.00 Pure hypercholesterolemia, unspecified; Z96.651 Presence of right artificial knee joint; I25.10 Atherosclerotic heart disease of native coronary artery without angina pectoris; N18.9 Chronic kidney disease, unspecified; M25.762 Osteophyte, left knee; I25.2 Old myocardial infarction; Z80.1 Family history of malignant neoplasm of trachea, bronchus and lung; Z82.49 Family history of ischemic heart disease and other diseases of the circulatory system; Z98.61 Coronary angioplasty status; Z87.442 Personal history of urinary calculi
CPT/HCPCS: 36415; 80048; 85014; 85018; 85049; 85610; 86850; 86900; 86901; 94760; A9270-GY; C1776; J0690; J1100; J1650; J1885; J2250; J2405; J2704; J2795; J3010

== ENCOUNTER 2017-04-17 14:09 | Emergency (ER) | payer BC ==
--- NOTE | 2017-04-17 14:56 | UC ---
Respiratory Complaint HPI - HPI Summary HPI Summary: 61 year old male presents with cough and left sided upper back pain. - History of Current Complaint Stated Complaint: COUGH,CHEST SHAWNA Time Seen by Provider: 04/17/17 14:56 Hx Obtained From: Patient Onset/Duration: Sudden Onset Severity Initially: Moderate Severity Currently: Moderate Pain Scale Used: 0-10 Numeric - 5 Character: Cough: Nonproductive Alleviating Factors: Nothing Associated Signs And Symptoms: Positive: Wheezing - Allergies/Home Medications Allergies/Adverse Reactions: Allergies Allergy/AdvReac Type Severity Reaction Status Date / Time No Known Allergies Allergy Verified 04/17/17 14:58 PMH/Surg Hx/FS Hx/Imm Hx Previously Healthy: Yes - Surgical History Surgical History: Yes Surgery Procedure, Year, and Place: RIGHT KNEE MENISCUS REPAIR 2011 - Social History Alcohol Use: Rare Alcohol Amount: 1 DRINK Q 6 MONTHS Substance Use Type: None Smoking Status (MU): Never Smoked Tobacco - Immunization History Most Recent Influenza Vaccination: fall 2013 Most Recent Pneumonia Vaccination: nonever Review of Systems Constitutional: Negative Skin: Negative Eyes: Negative ENT: Negative Respiratory: Cough Cardiovascular: Negative Gastrointestinal: Negative Genitourinary: Negative Motor: Negative Neurovascular: Negative Musculoskeletal: Negative Neurological: Negative Psychological: Negative All Other Systems Reviewed And Are Negative: Yes Physical Exam Triage Information Reviewed: Yes Eye Exam: Normal ENT Exam: Normal Dental Exam: Normal Neck exam: Normal Neck: Positive: 1 Respiratory: Positive: Rhonchi, Wheezing Cardiovascular Exam: Normal Abdominal Exam: Normal Musculoskeletal Exam: Normal Neurological Exam: Normal Psychological Exam: Normal Skin Exam: Normal Respiratory Course/Dx - Differential Dx/Diagnosis Provider Diagnoses: cough. back pain Discharge - Discharge Plan Condition: Stable Disposition: HOME Prescriptions: Albuterol HFA INHALER* [Ventolin HFA Inhaler*] 1 puff INH Q6H PRN #1 mdi PRN Reason: Wheezing Azithromyxin NURY (NF) [Z-Nury (Zithromax) 250 mg tabs #6] 2 tab PO .TODAY, THEN 1 DAILY #6 tab Guaifenesin-Codeine [Cheratussin AC] 1 teasp PO Q8H PRN #120 ml MDD 15 ml PRN Reason: Cough LoraTADine TAB(NF) [Claritin 10 MG TAB(NF)] 10 mg PO DAILY #30 tab Patient Education Materials: Acute Cough (ED) Referrals: No Primary Care Phys,NOPCP [Primary Care Provider] -
[2017-04-17 14:59] VITALS: BP 129/89
== END 2017-04-17 15:33 | disposition home or self-care (01) ==
LOC: UCCORT 14:09
DX: R05 Cough (principal); M54.9 Dorsalgia, unspecified
CPT/HCPCS: 99212; G0463